=== PATIENT | male | born 1955 | race African-American/Black ===

== ENCOUNTER 2018-10-07 14:06 | Inpatient (IN) | payer MEDICAID ==
[~2018-10-07] VITALS: Ht 177.8 cm; Wt 70.8 kg
[2018-10-07 14:34] VITALS: BP 123/77
[2018-10-07] MEDS ORDERED: LORazepam 2 MG TABLET PO PRN (15:00)
[2018-10-07] MEDS ORDERED: HydrOXYzine PAMOATE 50 MG CAPSULE PO PRN (15:00)
[2018-10-07] MEDS ORDERED: GuaiFENesin/D-METHORPHAN [SUGAR-FREE] 200-20MG/10 ML SYRUP UDCUP PO PRN (15:00)
[2018-10-07] MEDS ORDERED: LOPERAMIDE HCL 2 MG CAPSULE PO PRN (15:00)
[2018-10-07] MEDS ORDERED: CYANOCOBALAMIN 1,000 MCG/ML VIAL IM ONE (15:00)
[2018-10-07] MEDS: THIAMINE HCL 100 MG TABLET PO SCH (17:16)
[2018-10-07] MEDS ORDERED: PNEUMOCOCCAL VACCINE POLYVALENT 0.5 ML VIAL [PPSV23] IM ONE (17:45)
[2018-10-07] MEDS ORDERED: DiphenhydrAMINE HCL 50 MG/ML VIAL IM ONE (21:30)
[2018-10-07] MEDS ORDERED: HALOPERIDOL LACTATE 5 MG/ML VIAL IM ONE (21:30)
[2018-10-07] MEDS ORDERED: LORazepam 2 MG/ML VIAL IM ONE (21:30)
[2018-10-07 21:43] VITALS: BP 129/81
[2018-10-08] MEDS ORDERED: LORazepam 2 MG TABLET PO PRN (07:00)
[2018-10-08] MEDS: LORazepam 2 MG TABLET PO SCH ×4 (09:30→20:16)
[2018-10-08] MEDS: FOLIC ACID 1 MG TABLET PO SCH (09:30)
[2018-10-08] MEDS: MULTIVITAMINS WITH MINERALS, THERAPEUTIC TABLET PO SCH (09:30)
[2018-10-08] MEDS: THIAMINE HCL 100 MG TABLET PO SCH ×2 (09:30→16:19)
[2018-10-08 09:47] VITALS: BP 125/81
[2018-10-08 09:49] VITALS: BP 125/81
[2018-10-08 11:45] VITALS: BP 123/81
[2018-10-08 16:32] VITALS: BP 99/60
[2018-10-08 16:33] VITALS: BP 99/60
[2018-10-08 19:50] VITALS: BP 99/55
[2018-10-08] MEDS ORDERED: PETROLATUM,WHITE 28 GM JELLY TP PRN ×2 (20:00→23:15)
[2018-10-08] MEDS ORDERED: ACETAMINOPHEN 325 MG TABLET PO PRN ×2 (20:00→23:15)
[2018-10-08] MEDS ORDERED: MAGNESIUM HYDROXIDE SUSPENSION 30 ML UDCUP PO PRN ×2 (20:00→23:15)
[2018-10-08] MEDS ORDERED: GuaiFENesin/D-METHORPHAN [SUGAR-FREE] 200-20MG/10 ML SYRUP UDCUP PO PRN ×2 (20:00→23:15)
[2018-10-08] MEDS ORDERED: ALBUTEROL SULFATE HFA 90 MCG/PUFF 8 GM INHALER IH PRN ×2 (20:00→23:15)
[2018-10-08] MEDS ORDERED: MAG HYDROX/AL HYDROX/SIMETH ES 30 ML SUSPENSION UDCUP PO PRN ×2 (20:00→23:15)
[2018-10-08] MEDS ORDERED: NICOTINE 14 MG/24 HOUR PATCH TD PRN ×2 (20:00→23:15)
[2018-10-08] MEDS ORDERED: DOCUSATE SODIUM 100 MG CAPSULE PO PRN ×2 (20:00→23:15)
[2018-10-08] MEDS ORDERED: CloNIDine HCL 0.1 MG TABLET PO PRN ×2 (20:00→23:15)
[2018-10-08] MEDS ORDERED: LOPERAMIDE HCL 2 MG CAPSULE PO PRN ×2 (20:00→23:15)
[2018-10-08] MEDS ORDERED: ONDANSETRON HCL 4 MG TABLET PO PRN (23:15)
[2018-10-08] MEDS ORDERED: IBUPROFEN 400 MG TABLET PO PRN (23:15)
[2018-10-09 01:07] VITALS: BP 75/55
[2018-10-09 01:08] VITALS: BP 75/55
[2018-10-09 07:59] LABS: BASOPHILS % (AUTO) 0.7 % (0.0-2.0); EOSINOPHILS % (AUTO) 3.7 % (1.0-6.0); HEMATOCRIT 36.5 % (41-53); HEMOGLOBIN 12.2 g/dL (13.5-17.5); LYMPHOCYTES # (AUTO) 1.2 K/uL (1.0-4.8); LYMPHOCYTES % (AUTO) 20.7 % (22.0-44.0); MEAN CORPUSCULAR HEMOGLOBIN 30.4 pg (26.0-34.0); MEAN CORPUSCULAR HGB CONC 33.4 G/dL (31.0-37.0); MEAN CORPUSCULAR VOLUME 91 fL (80-100); MONOCYTES # (AUTO) 0.6 K/uL (0.1-1.0); MONOCYTES % (AUTO) 10.5 % (2.0-9.0); NEUTROPHILS # (AUTO) 3.7 K/uL (1.8-7.7); NEUTROPHILS % (AUTO) 64.4 % (40.0-70.0); PLATELET COUNT (AUTO) 186 K/uL (150-450); RED BLOOD CELL COUNT(AUTO) 4.01 MIL/uL (4.50-5.90); RED CELL DISTRIBUTION WIDTH 14.8 % (11.5-14.5)
[2018-10-09 08:49] LABS: HEMOGLOBIN A1C 10.5 % (4.5-6.2)
[2018-10-09 08:52] LABS: ALANINE AMINOTRANSFERASE 34 U/L (12-78); ALBUMIN 3.2 g/dL (3.4-5.0); ALKALINE PHOSPHATASE 93 U/L (46-116); ANION GAP 8 mmol/L (8-16); ASPARTATE AMINOTRANSFERASE 26 U/L (15-37); BILIRUBIN,TOTAL 0.7 mg/dL (0.1-1.0); CALCIUM, TOTAL 9.5 mg/dL (8.8-10.5); CARBON DIOXIDE 27 mmol/L (22-29); CHLORIDE 97 mmol/L (98-107); CHOL/HDL RATIO 3.6 (4.2-7.3); CHOLESTEROL 127 mg/dL (131-200); CREATININE 0.95 mg/dL (0.60-1.30); FREE T4 (FREE THYROXINE) 1.22 ng/dL (0.76-1.46); GLOMERULAR FILTR. RATE CALC > 60 mL/min (>60); GLUCOSE,RANDOM 367 mg/dL (70-110); HDL CHOLESTEROL 35 mg/dL (40-60); LDL CHOL (CALC.) 70 mg/dL (0-130); POTASSIUM 4.1 mmol/L (3.5-5.1); SODIUM SERUM 132 mmol/L (136-145); THYROID STIMULATING HORMONE 1.99 uIU/mL (0.36-3.74); TOTAL PROTEIN, SERUM 7.5 g/dL (6.4-8.2); TRIGLYCERIDES 110 mg/dL (15-150); UREA NITROGEN, BLOOD 16 mg/dL (7-18)
[2018-10-09] MEDS: MULTIVITAMINS WITH MINERALS, THERAPEUTIC TABLET PO SCH (09:00)
[2018-10-09] MEDS: THIAMINE HCL 100 MG TABLET PO SCH ×3 (09:00→17:00)
[2018-10-09] MEDS: LORazepam 2 MG TABLET PO SCH ×5 (09:00→20:29)
[2018-10-09] MEDS: FOLIC ACID 1 MG TABLET PO SCH (09:00)
[2018-10-09] MEDS ORDERED: GLUCAGON,HUMAN RECOMBINANT 1 MG VIAL IM PRN (09:15)
[2018-10-09] MEDS: MetFORMIN HCL 500 MG TABLET PO SCH ×2 (16:34→17:00)
[2018-10-09 17:53] VITALS: BP 117/95
[2018-10-09 17:55] VITALS: BP 117/95
[2018-10-10] MEDS ORDERED: LORazepam 1 MG TABLET PO PRN (07:00)
[2018-10-10 07:01] VITALS: BP 120/61
[2018-10-10] MEDS: MetFORMIN HCL 500 MG TABLET PO SCH ×2 (07:03→17:11)
[2018-10-10] MEDS: IBUPROFEN 400 MG TABLET PO PRN (07:04)
[2018-10-10] MEDS: MULTIVITAMINS WITH MINERALS, THERAPEUTIC TABLET PO SCH ×2 (08:47→09:00)
[2018-10-10] MEDS: THIAMINE HCL 100 MG TABLET PO SCH ×3 (08:47→17:11)
[2018-10-10] MEDS: FOLIC ACID 1 MG TABLET PO SCH ×2 (08:47→09:00)
[2018-10-10] MEDS: LORazepam 1 MG TABLET PO SCH ×6 (08:47→21:33)
[2018-10-10 15:31] VITALS: BP 122/61
[2018-10-11 06:28] VITALS: BP 120/73
[2018-10-11 06:29] VITALS: BP 120/73
[2018-10-11] MEDS ORDERED: LORazepam 1 MG TABLET PO PRN (07:00)
[2018-10-11] MEDS: MetFORMIN HCL 500 MG TABLET PO SCH ×2 (07:02→16:27)
[2018-10-11] MEDS: THIAMINE HCL 100 MG TABLET PO SCH ×2 (08:11→16:27)
[2018-10-11] MEDS: MULTIVITAMINS WITH MINERALS, THERAPEUTIC TABLET PO SCH (08:11)
[2018-10-11] MEDS: FOLIC ACID 1 MG TABLET PO SCH (08:11)
[2018-10-11] MEDS: CITALOPRAM HYDROBROMIDE 20 MG TABLET PO SCH ×2 (08:11→09:00)
[2018-10-11] MEDS ORDERED: SUMAtriptan SUCCINATE 25 MG TABLET PO PRN (15:00)
[2018-10-11 16:30] VITALS: BP 111/63
[2018-10-12] MEDS: MetFORMIN HCL 500 MG TABLET PO SCH ×2 (07:09→16:59)
[2018-10-12] MEDS: FOLIC ACID 1 MG TABLET PO SCH ×2 (09:00→09:23)
[2018-10-12] MEDS: THIAMINE HCL 100 MG TABLET PO SCH ×3 (09:00→16:59)
[2018-10-12] MEDS: MULTIVITAMINS WITH MINERALS, THERAPEUTIC TABLET PO SCH ×2 (09:00→09:23)
[2018-10-12] MEDS: CITALOPRAM HYDROBROMIDE 20 MG TABLET PO SCH (09:24)
[2018-10-12 16:17] VITALS: BP 132/86
[2018-10-12] MEDS: TraMADol HCL 50 MG TABLET PO PRN (16:17)
[2018-10-12] MEDS: ONDANSETRON HCL 4 MG TABLET PO PRN (16:27)
[2018-10-12] MEDS: INSULIN LISPRO 100 UNITS/ML SQ PRN ×2 (16:48→20:48)
[2018-10-12 17:24] LABS: GLUCOMETER DEV NAME(LOC) BV2X.; GLUCOSE,POINT OF CARE 349 MG/DL (70-110)
[2018-10-12 20:59] LABS: GLUCOMETER DEV NAME(LOC) BV2X.; GLUCOSE,POINT OF CARE 230 MG/DL (70-110)
[2018-10-13 01:21] VITALS: BP 117/82
[2018-10-13] MEDS: TraMADol HCL 50 MG TABLET PO PRN ×2 (01:23→17:16)
[2018-10-13] MEDS: INSULIN LISPRO 100 UNITS/ML SQ PRN ×4 (06:48→22:05)
[2018-10-13] MEDS ORDERED: MetFORMIN HCL 500 MG TABLET PO SCH (07:00)
[2018-10-13 07:34] LABS: GLUCOMETER DEV NAME(LOC) BV2X.; GLUCOSE,POINT OF CARE 235 MG/DL (70-110)
[2018-10-13 08:23] LABS: ANION GAP 7 mmol/L (8-16); CARBON DIOXIDE 28 mmol/L (22-29); CHLORIDE 98 mmol/L (98-107); CREATININE 0.88 mg/dL (0.60-1.30); GLOMERULAR FILTR. RATE CALC > 60 mL/min (>60); GLUCOSE,RANDOM 238 mg/dL (70-110); POTASSIUM 4.4 mmol/L (3.5-5.1); SODIUM SERUM 133 mmol/L (136-145); UREA NITROGEN, BLOOD 25 mg/dL (7-18)
[2018-10-13 08:39] VITALS: BP 114/69
[2018-10-13] MEDS: FOLIC ACID 1 MG TABLET PO SCH (09:46)
[2018-10-13] MEDS: MULTIVITAMINS WITH MINERALS, THERAPEUTIC TABLET PO SCH (09:46)
[2018-10-13] MEDS: CITALOPRAM HYDROBROMIDE 20 MG TABLET PO SCH (09:46)
[2018-10-13] MEDS: THIAMINE HCL 100 MG TABLET PO SCH ×2 (09:47→17:15)
[2018-10-13] MEDS: SODIUM CHLORIDE 1 GM TABLET PO SCH ×2 (10:00→17:14)
[2018-10-13 11:09] LABS: GLUCOMETER DEV NAME(LOC) BV2X.; GLUCOSE,POINT OF CARE 194 MG/DL (70-110)
[2018-10-13] MEDS ORDERED: ZOLPIDEM TARTRATE 10 MG TABLET PO PRN (11:15)
[2018-10-13] MEDS: LORazepam 2 MG TABLET PO PRN (11:30)
[2018-10-13 16:24] VITALS: BP 117/81
[2018-10-13 16:54] LABS: GLUCOMETER DEV NAME(LOC) BV2X.; GLUCOSE,POINT OF CARE 211 MG/DL (70-110)
[2018-10-13] MEDS: MetFORMIN HCL 500 MG TABLET PO SCH (17:15)
[2018-10-13 17:16] VITALS: BP 121/73
[2018-10-13] MEDS: ONDANSETRON HCL 4 MG TABLET PO PRN (17:16)
[2018-10-13 20:44] LABS: GLUCOMETER DEV NAME(LOC) BV2X.; GLUCOSE,POINT OF CARE 232 MG/DL (70-110)
[2018-10-13] MEDS: IBUPROFEN 400 MG TABLET PO PRN (23:45)
[2018-10-14 00:40] VITALS: BP 136/84
[2018-10-14] MEDS: TraMADol HCL 50 MG TABLET PO PRN ×2 (05:12→16:35)
[2018-10-14 06:54] LABS: GLUCOMETER DEV NAME(LOC) BV2X.; GLUCOSE,POINT OF CARE 188 MG/DL (70-110)
[2018-10-14] MEDS: MetFORMIN HCL 500 MG TABLET PO SCH ×2 (07:24→16:55)
[2018-10-14] MEDS: INSULIN LISPRO 100 UNITS/ML SQ PRN ×3 (07:24→20:47)
[2018-10-14] MEDS: ONDANSETRON HCL 4 MG TABLET PO PRN (07:27)
[2018-10-14] MEDS: FOLIC ACID 1 MG TABLET PO SCH (08:45)
[2018-10-14] MEDS: MULTIVITAMINS WITH MINERALS, THERAPEUTIC TABLET PO SCH (08:45)
[2018-10-14] MEDS: THIAMINE HCL 100 MG TABLET PO SCH ×2 (08:45→16:55)
[2018-10-14] MEDS: CITALOPRAM HYDROBROMIDE 20 MG TABLET PO SCH (08:45)
[2018-10-14] MEDS: SODIUM CHLORIDE 1 GM TABLET PO SCH ×2 (08:45→16:55)
[2018-10-14 16:35] VITALS: BP 121/79
[2018-10-14 20:49] LABS: GLUCOMETER DEV NAME(LOC) BV2X.; GLUCOSE,POINT OF CARE 157 MG/DL (70-110)
[2018-10-14 20:49] LABS: GLUCOMETER DEV NAME(LOC) BV2X.; GLUCOSE,POINT OF CARE 209 MG/DL (70-110)
[2018-10-15 00:13] VITALS: BP 122/79
[2018-10-15] MEDS: ONDANSETRON HCL 4 MG TABLET PO PRN (01:17)
[2018-10-15 06:19] LABS: GLUCOMETER DEV NAME(LOC) BV2X.; GLUCOSE,POINT OF CARE 154 MG/DL (70-110)
[2018-10-15] MEDS: MetFORMIN HCL 500 MG TABLET PO SCH ×3 (06:53→17:00)
[2018-10-15] MEDS: INSULIN LISPRO 100 UNITS/ML SQ PRN (06:54)
[2018-10-15 07:43] LABS: ANION GAP 10 mmol/L (8-16); CALCIUM, TOTAL 9.4 mg/dL (8.8-10.5); CARBON DIOXIDE 27 mmol/L (22-29); CHLORIDE 98 mmol/L (98-107); CREATININE 0.95 mg/dL (0.60-1.30); GLOMERULAR FILTR. RATE CALC > 60 mL/min (>60); GLUCOSE,RANDOM 156 mg/dL (70-110); POTASSIUM 4.2 mmol/L (3.5-5.1); SODIUM SERUM 135 mmol/L (136-145); UREA NITROGEN, BLOOD 23 mg/dL (7-18)
[2018-10-15] MEDS ORDERED: DiphenhydrAMINE HCL 50 MG/ML VIAL IM ONE (07:45)
[2018-10-15] MEDS ORDERED: LORazepam 2 MG/ML VIAL IM ONE (07:45)
[2018-10-15] MEDS ORDERED: HALOPERIDOL LACTATE 5 MG/ML VIAL IM ONE (07:45)
[2018-10-15] MEDS: CITALOPRAM HYDROBROMIDE 20 MG TABLET PO SCH (09:01)
[2018-10-15] MEDS: SODIUM CHLORIDE 1 GM TABLET PO SCH (09:01)
[2018-10-15] MEDS: FOLIC ACID 1 MG TABLET PO SCH (09:01)
[2018-10-15] MEDS: MULTIVITAMINS WITH MINERALS, THERAPEUTIC TABLET PO SCH (09:01)
[2018-10-15] MEDS: THIAMINE HCL 100 MG TABLET PO SCH ×3 (09:01→17:00)
[2018-10-15 11:55] LABS: GLUCOMETER DEV NAME(LOC) BV2X.; GLUCOSE,POINT OF CARE 155 MG/DL (70-110)
[2018-10-16] MEDS: MetFORMIN HCL 500 MG TABLET PO SCH ×2 (07:00→16:54)
[2018-10-16] MEDS: MULTIVITAMINS WITH MINERALS, THERAPEUTIC TABLET PO SCH (08:31)
[2018-10-16] MEDS: CITALOPRAM HYDROBROMIDE 20 MG TABLET PO SCH (08:31)
[2018-10-16] MEDS: THIAMINE HCL 100 MG TABLET PO SCH ×2 (08:31→16:54)
[2018-10-16] MEDS: FOLIC ACID 1 MG TABLET PO SCH (08:31)
[2018-10-17 01:19] VITALS: BP 125/81
[2018-10-17] MEDS: MetFORMIN HCL 500 MG TABLET PO SCH ×3 (06:57→17:00)
[2018-10-17] MEDS: CITALOPRAM HYDROBROMIDE 20 MG TABLET PO SCH (09:02)
[2018-10-17] MEDS: FOLIC ACID 1 MG TABLET PO SCH (09:02)
[2018-10-17] MEDS: THIAMINE HCL 100 MG TABLET PO SCH (09:02)
[2018-10-17] MEDS: MULTIVITAMINS WITH MINERALS, THERAPEUTIC TABLET PO SCH (09:02)
[2018-10-17] MEDS: LORazepam 2 MG TABLET PO PRN (09:02)
[2018-10-18 03:38] VITALS: BP 138/88
[2018-10-18] MEDS: CITALOPRAM HYDROBROMIDE 20 MG TABLET PO SCH (09:00)
[2018-10-18 09:50] VITALS: BP 132/85
[2018-10-18] MEDS: MULTIVITAMINS WITH MINERALS, THERAPEUTIC TABLET PO SCH (09:50)
[2018-10-18] MEDS: TraMADol HCL 50 MG TABLET PO PRN (09:50)
== END 2018-10-18 10:50 | disposition left against medical advice (07) | DRG 750 ==
LOC: B2S 15:20
PROVIDERS: ADMIT Psychiatry & Neurology Child & Adolescent Psychiatry; ATTEND Psychiatry & Neurology Child & Adolescent Psychiatry
DX: F25.9 Schizoaffective disorder, unspecified (principal); E11.9 Type 2 diabetes mellitus without complications; R45.851 Suicidal ideations; F10.20 Alcohol dependence, uncomplicated; Y90.9 Presence of alcohol in blood, level not specified; Z53.21 Procedure and treatment not carried out due to patient leaving prior to being seen by health care provider; F41.9 Anxiety disorder, unspecified; F10.239 Alcohol dependence with withdrawal, unspecified; E55.9 Vitamin D deficiency, unspecified; E66.9 Obesity, unspecified; G47.00 Insomnia, unspecified; K59.00 Constipation, unspecified; Z88.0 Allergy status to penicillin; Z88.1 Allergy status to other antibiotic agents; Z68.22 Body mass index [BMI] 22.0-22.9, adult
CPT/HCPCS: 83036; 84439; 84443; J1200; J1630; J2060; J3420; Q0162

== ENCOUNTER 2018-10-22 13:06 | Emergency (ER) | payer MEDICAID ==
[~2018-10-22] VITALS: Ht 185.4 cm; Wt 69.5 kg
[2018-10-22] MEDS ORDERED: METF-960 PO (13:30)
[2018-10-22] MEDS ORDERED: LIB5 PO (13:30)
[2018-10-22] MEDS ORDERED: SODIUM CHLORIDE 0.9% 2,000 ML IV ONE (13:46)
[2018-10-22] MEDS ORDERED: INSULIN REGULAR, HUMAN 100 UNITS/ML IVP ONE (14:00)
[2018-10-22 14:27] LABS: BASOPHILS % (AUTO) 0.2 % (0.0-2.0); EOSINOPHILS % (AUTO) 3.6 % (1.0-6.0); HEMATOCRIT 32.4 % (41-53); HEMOGLOBIN 10.8 g/dL (13.5-17.5); LYMPHOCYTES # (AUTO) 1.3 K/uL (1.0-4.8); LYMPHOCYTES % (AUTO) 21.2 % (22.0-44.0); MEAN CORPUSCULAR HGB CONC 33.3 G/dL (31.0-37.0); MEAN CORPUSCULAR VOLUME 93 fL (80-100); MONOCYTES # (AUTO) 0.6 K/uL (0.1-1.0); MONOCYTES % (AUTO) 10.6 % (2.0-9.0); NEUTROPHILS # (AUTO) 3.9 K/uL (1.8-7.7); NEUTROPHILS % (AUTO) 64.4 % (40.0-70.0); PLATELET COUNT (AUTO) 145 K/uL (150-450); RED BLOOD CELL COUNT(AUTO) 3.48 MIL/uL (4.50-5.90)
[2018-10-22 14:52] LABS: B-TYPE NATRIURETIC PEPTIDE 20 pg/mL (0-100); HEMOGLOBIN A1C 10.6 % (4.5-6.2)
[2018-10-22 14:54] LABS: ALANINE AMINOTRANSFERASE 38 U/L (12-78); ALBUMIN 3.2 g/dL (3.4-5.0); ALKALINE PHOSPHATASE 150 U/L (46-116); ANION GAP 4 mmol/L (8-16); ASPARTATE AMINOTRANSFERASE 23 U/L (15-37); BILIRUBIN,TOTAL 0.4 mg/dL (0.1-1.0); CALCIUM, TOTAL 9.3 mg/dL (8.8-10.5); CARBON DIOXIDE 31 mmol/L (22-29); CHLORIDE 96 mmol/L (98-107); CREATININE 1.07 mg/dL (0.60-1.30); GLOMERULAR FILTR. RATE CALC > 60 mL/min (>60); POTASSIUM 4.2 mmol/L (3.5-5.1); SODIUM SERUM 131 mmol/L (136-145); TOTAL PROTEIN, SERUM 7.6 g/dL (6.4-8.2); UREA NITROGEN, BLOOD 17 mg/dL (7-18)
[2018-10-22 15:02] VITALS: BP 148/76
[2018-10-22 15:04] LABS: GLUCOSE,POINT OF CARE 377 MG/DL (70-110)
[2018-10-22 15:27] LABS: LIPASE 192 U/L (73-393)
[2018-10-22 15:32] LABS: GLUCOSE,RANDOM 528 mg/dL (70-110)
== END 2018-10-22 16:11 | disposition left against medical advice (07) ==
LOC: EMS 13:08
DX: F10.20 Alcohol dependence, uncomplicated (principal); E86.0 Dehydration; F17.210 Nicotine dependence, cigarettes, uncomplicated; F12.90 Cannabis use, unspecified, uncomplicated; Z79.84 Long term (current) use of oral hypoglycemic drugs; Z88.1 Allergy status to other antibiotic agents; Z88.0 Allergy status to penicillin; Z91.018 Allergy to other foods
CPT/HCPCS: 80053; 82962; 83036; 83690; 83880; 84484; 85025; 96374; 99283; J1815; J7030

== ENCOUNTER 2018-10-22 17:45 | Emergency (ER) | payer MEDICAID ==
[~2018-10-22] VITALS: Ht 170.2 cm; Wt 72.7 kg
[~2018-10-22 17:45] MED LIST: LIB5 PO; METF-960 PO
[2018-10-22 18:15] LABS: GLUCOSE,POINT OF CARE 149 MG/DL (70-110)
[2018-10-22 20:40] VITALS: BP 122/74
== END 2018-10-22 20:42 | disposition home or self-care (01) ==
LOC: EMS 17:47
DX: F10.21 Alcohol dependence, in remission (principal); E11.9 Type 2 diabetes mellitus without complications; F12.90 Cannabis use, unspecified, uncomplicated; F17.210 Nicotine dependence, cigarettes, uncomplicated; Z88.0 Allergy status to penicillin; Z88.1 Allergy status to other antibiotic agents; Z91.018 Allergy to other foods; Y90.9 Presence of alcohol in blood, level not specified

== ENCOUNTER 2018-10-24 22:07 | Emergency (ER) | payer MEDICAID ==
[~2018-10-24] VITALS: Ht 185.4 cm; Wt 75.0 kg
[2018-10-25 00:49] LABS: BASOPHILS % (AUTO) 0.4 % (0.0-2.0); EOSINOPHILS % (AUTO) 3.7 % (1.0-6.0); HEMATOCRIT 37.3 % (41-53); HEMOGLOBIN 12.4 g/dL (13.5-17.5); LYMPHOCYTES # (AUTO) 1.5 K/uL (1.0-4.8); LYMPHOCYTES % (AUTO) 25.7 % (22.0-44.0); MEAN CORPUSCULAR HEMOGLOBIN 30.7 pg (26.0-34.0); MEAN CORPUSCULAR HGB CONC 33.3 G/dL (31.0-37.0); MEAN CORPUSCULAR VOLUME 92 fL (80-100); MONOCYTES # (AUTO) 0.6 K/uL (0.1-1.0); MONOCYTES % (AUTO) 10.8 % (2.0-9.0); NEUTROPHILS # (AUTO) 3.5 K/uL (1.8-7.7); NEUTROPHILS % (AUTO) 59.4 % (40.0-70.0); PLATELET COUNT (AUTO) 150 K/uL (150-450); RED BLOOD CELL COUNT(AUTO) 4.04 MIL/uL (4.50-5.90); RED CELL DISTRIBUTION WIDTH 14.3 % (11.5-14.5)
[2018-10-25 01:04] LABS: ALANINE AMINOTRANSFERASE 34 U/L (12-78); ALBUMIN 3.5 g/dL (3.4-5.0); ALKALINE PHOSPHATASE 130 U/L (46-116); ANION GAP 9 mmol/L (8-16); ASPARTATE AMINOTRANSFERASE 20 U/L (15-37); BILIRUBIN,TOTAL 0.5 mg/dL (0.1-1.0); CALCIUM, TOTAL 9.5 mg/dL (8.8-10.5); CARBON DIOXIDE 30 mmol/L (22-29); CHLORIDE 96 mmol/L (98-107); CREATININE 1.02 mg/dL (0.60-1.30); GLOMERULAR FILTR. RATE CALC > 60 mL/min (>60); POTASSIUM 3.9 mmol/L (3.5-5.1); SODIUM SERUM 135 mmol/L (136-145); TOTAL PROTEIN, SERUM 7.9 g/dL (6.4-8.2); UREA NITROGEN, BLOOD 26 mg/dL (7-18)
[2018-10-25 01:06] LABS: GLUCOSE,RANDOM 441 mg/dL (70-110)
[2018-10-25 01:19] LABS: GLUCOSE,POINT OF CARE 420 MG/DL (70-110)
[2018-10-25] MEDS ORDERED: INSULIN REGULAR, HUMAN 100 UNITS/ML IVP ONE (01:45)
[2018-10-25] MEDS ORDERED: SODIUM CHLORIDE 0.9% 1,000 ML IV ONE (01:45)
[2018-10-25] MEDS ORDERED: ONDANSETRON HCL 4 MG/2 ML VIAL IVP ONE (01:45)
[2018-10-25 03:15] LABS: GLUCOSE,POINT OF CARE 226 MG/DL (70-110)
[2018-10-25 05:30] VITALS: BP 124/72
== END 2018-10-25 05:57 | disposition home or self-care (01) ==
LOC: EMS 22:09
DX: K52.9 Noninfective gastroenteritis and colitis, unspecified (principal); E10.65 Type 1 diabetes mellitus with hyperglycemia; F12.90 Cannabis use, unspecified, uncomplicated; F17.210 Nicotine dependence, cigarettes, uncomplicated; Z88.0 Allergy status to penicillin; Z88.1 Allergy status to other antibiotic agents; Z91.018 Allergy to other foods; Z79.84 Long term (current) use of oral hypoglycemic drugs
CPT/HCPCS: 36415; 80053; 82009; 82962; 85025; 96361; 96374; 96375; 99283; J1815; J2405; J7030

== ENCOUNTER 2019-06-06 15:58 | Inpatient (IN) | payer MEDICARE, MEDICAID ==
[~2019-06-06] VITALS: Ht 185.4 cm; Wt 67.7 kg
[2019-06-06 16:18] VITALS: BP 139/83
[2019-06-06] MEDS ORDERED: ZOLPIDEM TARTRATE 10 MG TABLET PO PRN (16:30)
[2019-06-06] MEDS ORDERED: HALOPERIDOL 5 MG TABLET PO PRN (16:30)
[2019-06-06] MEDS ORDERED: PNEUMOCOCCAL VACCINE POLYVALENT 0.5 ML VIAL [PPSV23] IM ONE (17:15)
[2019-06-06 17:30] VITALS: BP 154/87
[2019-06-06] MEDS ORDERED: INFLUENZA VIRUS VACCINE QVS 2019-20 (3YR+)/PF 60 MCG/0.5 ML SYRINGE IM ONE (17:30)
[2019-06-06] MEDS: LORazepam 1 MG TABLET PO PRN (17:41)
[2019-06-06] MEDS ORDERED: GLUCAGON,HUMAN RECOMBINANT 1 MG VIAL IM PRN (18:45)
[2019-06-06] MEDS ORDERED: INSULIN LISPRO 100 UNITS/ML SQ PRN (18:45)
[2019-06-07] MEDS: MetFORMIN HCL 500 MG TABLET PO SCH ×2 (07:00→17:00)
[2019-06-07] MEDS ORDERED: MAG HYDROX/AL HYDROX/SIMETH ES 30 ML SUSPENSION UDCUP PO PRN (07:45)
[2019-06-07] MEDS ORDERED: LOPERAMIDE HCL 2 MG CAPSULE PO PRN (07:45)
[2019-06-07] MEDS ORDERED: PETROLATUM,WHITE 28 GM JELLY TP PRN (07:45)
[2019-06-07] MEDS ORDERED: DOCUSATE SODIUM 100 MG CAPSULE PO PRN (07:45)
[2019-06-07] MEDS ORDERED: GuaiFENesin/D-METHORPHAN [SUGAR-FREE] 200-20MG/10 ML SYRUP UDCUP PO PRN (07:45)
[2019-06-07] MEDS ORDERED: ACETAMINOPHEN 325 MG TABLET PO PRN (07:45)
[2019-06-07] MEDS ORDERED: ALBUTEROL SULFATE HFA 90 MCG/PUFF 8 GM INHALER IH PRN (07:45)
[2019-06-07] MEDS ORDERED: IBUPROFEN 400 MG TABLET PO PRN (07:45)
[2019-06-07] MEDS ORDERED: CloNIDine HCL 0.1 MG TABLET PO PRN (07:45)
[2019-06-07] MEDS ORDERED: NICOTINE 14 MG/24 HOUR PATCH TD PRN (07:45)
[2019-06-07] MEDS ORDERED: ONDANSETRON HCL 4 MG TABLET PO PRN (07:45)
[2019-06-07] MEDS ORDERED: MAGNESIUM HYDROXIDE SUSPENSION 30 ML UDCUP PO PRN (07:45)
[2019-06-07] MEDS: LORazepam 1 MG TABLET PO PRN (08:58)
[2019-06-07] MEDS: CITALOPRAM HYDROBROMIDE 20 MG TABLET PO SCH (11:00)
[2019-06-07] MEDS: OLANZapine 5 MG TABLET PO SCH ×2 (11:00→17:00)
[2019-06-07 16:00] VITALS: BP 126/71
[2019-06-08] MEDS: LORazepam 1 MG TABLET PO PRN (03:08)
[2019-06-08] MEDS: MetFORMIN HCL 500 MG TABLET PO SCH ×2 (06:34→16:16)
[2019-06-08 08:20] VITALS: BP 130/74
[2019-06-08] MEDS: OLANZapine 5 MG TABLET PO SCH ×2 (09:45→16:16)
[2019-06-08] MEDS: CITALOPRAM HYDROBROMIDE 20 MG TABLET PO SCH (09:45)
[2019-06-08 16:03] VITALS: BP 134/90
[2019-06-08] MEDS: BACITRACIN 28.4 GM OINTMENT TP SCH (17:00)
[2019-06-09] MEDS: MetFORMIN HCL 500 MG TABLET PO SCH (07:00)
[2019-06-09] MEDS: BACITRACIN 28.4 GM OINTMENT TP SCH (08:19)
[2019-06-09] MEDS: OLANZapine 5 MG TABLET PO SCH (08:25)
[2019-06-09] MEDS: CITALOPRAM HYDROBROMIDE 20 MG TABLET PO SCH (08:25)
[2019-06-09] MEDS ORDERED: METF-960 PO (10:26)
[2019-06-09] MEDS ORDERED: OLAN5TAB2 PO (10:26)
[2019-06-09] MEDS ORDERED: CITA-106 PO (10:26)
== END 2019-06-09 12:22 | disposition home or self-care (01) | DRG 750 ==
LOC: B2S 16:29
PROVIDERS: ADMIT Psychiatry & Neurology Psychiatry; ATTEND Psychiatry & Neurology Psychiatry
DX: F25.1 Schizoaffective disorder, depressive type (principal); E46 Unspecified protein-calorie malnutrition; E11.9 Type 2 diabetes mellitus without complications; I10 Essential (primary) hypertension; F10.10 Alcohol abuse, uncomplicated; Z88.1 Allergy status to other antibiotic agents; Z88.0 Allergy status to penicillin; Z88.8 Allergy status to other drugs, medicaments and biological substances; Z91.018 Allergy to other foods; Z68.1 Body mass index [BMI] 19.9 or less, adult

== ENCOUNTER 2019-07-24 21:38 | Inpatient (IN) | payer MEDICARE, MEDICAID ==
[~2019-07-24] VITALS: Ht 185.4 cm; Wt 75.0 kg
[~2019-07-24 21:38] MED LIST changes: +CITA-106 PO; -LIB5 PO; +OLAN5TAB2 PO
[2019-07-24] MEDS ORDERED: ZOLPIDEM TARTRATE 10 MG TABLET PO PRN (22:15)
[2019-07-24] MEDS ORDERED: HALOPERIDOL 5 MG TABLET PO PRN (22:15)
[2019-07-24] MEDS ORDERED: LORazepam 2 MG TABLET PO PRN (22:15)
[2019-07-24 22:28] VITALS: BP 141/90
[2019-07-24] MEDS ORDERED: INFLUENZA VIRUS VACCINE QVS 2019-20 (3YR+)/PF 60 MCG/0.5 ML SYRINGE IM ONE (23:15)
[2019-07-24] MEDS ORDERED: PNEUMOCOCCAL VACCINE POLYVALENT 0.5 ML VIAL [PPSV23] IM ONE (23:15)
[2019-07-25 01:00] VITALS: BP 149/94
[2019-07-25 07:54] LABS: BASOPHILS % (AUTO) 0.8 % (0.0-2.0); EOSINOPHILS % (AUTO) 3.3 % (1.0-6.0); HEMATOCRIT 31.6 % (41-53); LYMPHOCYTES # (AUTO) 1.3 K/uL (1.0-4.8); LYMPHOCYTES % (AUTO) 21.4 % (22.0-44.0); MEAN CORPUSCULAR HEMOGLOBIN 32.1 pg (26.0-34.0); MEAN CORPUSCULAR HGB CONC 34.9 G/dL (31.0-37.0); MEAN CORPUSCULAR VOLUME 92 fL (80-100); MONOCYTES # (AUTO) 0.8 K/uL (0.1-1.0); NEUTROPHILS # (AUTO) 3.6 K/uL (1.8-7.7); NEUTROPHILS % (AUTO) 61.5 % (40.0-70.0); PLATELET COUNT (AUTO) 171 K/uL (150-450); RED BLOOD CELL COUNT(AUTO) 3.43 MIL/uL (4.50-5.90); RED CELL DISTRIBUTION WIDTH 14.5 % (11.5-14.5)
[2019-07-25 08:01] LABS: HEMOGLOBIN A1C 8.8 % (4.5-6.2)
[2019-07-25 08:16] LABS: ALANINE AMINOTRANSFERASE 58 U/L (12-78); ALBUMIN 2.4 g/dL (3.4-5.0); ALKALINE PHOSPHATASE 153 U/L (46-116); ANION GAP 6 mmol/L (8-16); ASPARTATE AMINOTRANSFERASE 50 U/L (15-37); BILIRUBIN,TOTAL 0.3 mg/dL (0.1-1.0); CALCIUM, TOTAL 8.3 mg/dL (8.8-10.5); CARBON DIOXIDE 30 mmol/L (22-29); CHLORIDE 103 mmol/L (98-107); CHOL/HDL RATIO 3.3 (4.2-7.3); CHOLESTEROL 122 mg/dL (131-200); CREATININE 0.82 mg/dL (0.60-1.30); FREE T4 (FREE THYROXINE) 1.11 ng/dL (0.76-1.46); GLOMERULAR FILTR. RATE CALC > 60 mL/min (>60); GLUCOSE,RANDOM 221 mg/dL (70-110); HDL CHOLESTEROL 37 mg/dL (40-60); LDL CHOL (CALC.) 61 mg/dL (0-130); POTASSIUM 3.7 mmol/L (3.5-5.1); SODIUM SERUM 139 mmol/L (136-145); THYROID STIMULATING HORMONE 1.17 uIU/mL (0.36-3.74); TOTAL PROTEIN, SERUM 6.3 g/dL (6.4-8.2); TRIGLYCERIDES 120 mg/dL (15-150); UREA NITROGEN, BLOOD 13 mg/dL (7-18)
[2019-07-25] MEDS: OLANZapine 5 MG TABLET PO SCH ×2 (09:45→17:45)
[2019-07-25] MEDS: CITALOPRAM HYDROBROMIDE 20 MG TABLET PO SCH (09:45)
[2019-07-25] MEDS ORDERED: IBUPROFEN 400 MG TABLET PO PRN (10:30)
[2019-07-25] MEDS ORDERED: GLUCAGON,HUMAN RECOMBINANT 1 MG VIAL IM PRN (10:30)
[2019-07-25] MEDS ORDERED: MAG HYDROX/AL HYDROX/SIMETH ES 30 ML SUSPENSION UDCUP PO PRN (10:30)
[2019-07-25] MEDS ORDERED: INSULIN LISPRO 100 UNITS/ML SQ PRN (10:30)
[2019-07-25] MEDS ORDERED: LOPERAMIDE HCL 2 MG CAPSULE PO PRN (10:30)
[2019-07-25] MEDS ORDERED: NICOTINE 14 MG/24 HOUR PATCH TD PRN (10:30)
[2019-07-25] MEDS ORDERED: PETROLATUM,WHITE 28 GM JELLY TP PRN (10:30)
[2019-07-25] MEDS ORDERED: ONDANSETRON HCL 4 MG TABLET PO PRN (10:30)
[2019-07-25] MEDS ORDERED: ALBUTEROL SULFATE HFA 90 MCG/PUFF 8 GM INHALER IH PRN (10:30)
[2019-07-25] MEDS ORDERED: MAGNESIUM HYDROXIDE SUSPENSION 30 ML UDCUP PO PRN (10:30)
[2019-07-25] MEDS ORDERED: CloNIDine HCL 0.1 MG TABLET PO PRN (10:30)
[2019-07-25] MEDS ORDERED: DOCUSATE SODIUM 100 MG CAPSULE PO PRN (10:30)
[2019-07-25] MEDS ORDERED: GuaiFENesin/D-METHORPHAN [SUGAR-FREE] 200-20MG/10 ML SYRUP UDCUP PO PRN (10:30)
[2019-07-25] MEDS ORDERED: ACETAMINOPHEN 325 MG TABLET PO PRN (10:30)
[2019-07-25 17:05] LABS: GLUCOMETER DEV NAME(LOC) BV3S.; GLUCOSE,POINT OF CARE 204 MG/DL (70-110)
[2019-07-25] MEDS: MetFORMIN HCL 500 MG TABLET PO SCH (17:45)
[2019-07-26] MEDS: MetFORMIN HCL 500 MG TABLET PO SCH ×2 (06:38→16:53)
[2019-07-26 06:45] VITALS: BP 145/93
[2019-07-26 06:48] LABS: GLUCOMETER DEV NAME(LOC) BV3S.; GLUCOSE,POINT OF CARE 166 MG/DL (70-110)
[2019-07-26 08:13] VITALS: BP 137/89
[2019-07-26] MEDS: CITALOPRAM HYDROBROMIDE 20 MG TABLET PO SCH (09:01)
[2019-07-26] MEDS: OLANZapine 5 MG TABLET PO SCH ×2 (09:01→16:53)
[2019-07-27 05:58] LABS: GLUCOMETER DEV NAME(LOC) BV3S.; GLUCOSE,POINT OF CARE 253 MG/DL (70-110)
[2019-07-27 06:00] VITALS: BP 138/79
[2019-07-27] MEDS: MetFORMIN HCL 500 MG TABLET PO SCH ×2 (06:38→16:52)
[2019-07-27 08:42] VITALS: BP 134/62
[2019-07-27] MEDS: CITALOPRAM HYDROBROMIDE 20 MG TABLET PO SCH (09:17)
[2019-07-27] MEDS: OLANZapine 5 MG TABLET PO SCH ×2 (09:18→16:52)
[2019-07-27 16:56] VITALS: BP 133/86
[2019-07-28 06:26] VITALS: BP 136/87
[2019-07-28] MEDS: MetFORMIN HCL 500 MG TABLET PO SCH (06:59)
[2019-07-28] MEDS: OLANZapine 5 MG TABLET PO SCH (08:32)
[2019-07-28] MEDS: CITALOPRAM HYDROBROMIDE 20 MG TABLET PO SCH (08:32)
[2019-07-28 08:50] VITALS: BP 127/69
[2019-07-28] MEDS ORDERED: CITA-107 PO (11:36)
[2019-07-28] MEDS ORDERED: METF-444 PO (11:36)
[2019-07-28] MEDS ORDERED: OLAN5TAB27 PO (11:36)
== END 2019-07-28 13:37 | disposition home or self-care (01) | DRG 750 ==
LOC: B3A 22:32
PROVIDERS: ADMIT Psychiatry & Neurology Psychiatry; ATTEND Psychiatry & Neurology Psychiatry
DX: F25.9 Schizoaffective disorder, unspecified (principal); R45.851 Suicidal ideations; E11.9 Type 2 diabetes mellitus without complications; D64.9 Anemia, unspecified; F19.90 Other psychoactive substance use, unspecified, uncomplicated; F10.10 Alcohol abuse, uncomplicated; I10 Essential (primary) hypertension; R74.0 Nonspecific elevation of levels of transaminase and lactic acid dehydrogenase [LDH]; F32.9 Major depressive disorder, single episode, unspecified; R45.4 Irritability and anger; Y90.0 Blood alcohol level of less than 20 mg/100 ml; Z72.89 Other problems related to lifestyle; Z88.0 Allergy status to penicillin; Z88.8 Allergy status to other drugs, medicaments and biological substances; Z28.21 Immunization not carried out because of patient refusal; Z91.14 Patient's other noncompliance with medication regimen
CPT/HCPCS: 83036; 84439; 84443; 87081

== ENCOUNTER 2021-04-15 23:31 | Inpatient (IN) | payer MEDICARE, MEDICAID ==
[~2021-04-15] VITALS: Ht 182.9 cm; Wt 62.6 kg
[~2021-04-15 23:31] MED LIST changes: -CITA-106 PO; +CITA-144 PO; -OLAN5TAB2 PO; +OLAN5TAB52 PO
[2021-04-16 01:08] LABS: BASOPHILS % (AUTO) 0.6 % (0.0-2.0); EOSINOPHILS % (AUTO) 2.6 % (1.0-6.0); HEMATOCRIT 36.1 % (41-53); HEMOGLOBIN 11.8 g/dL (13.5-17.5); LYMPHOCYTES # (AUTO) 1.7 K/uL (1.0-4.8); MEAN CORPUSCULAR HEMOGLOBIN 29.6 pg (26.0-34.0); MEAN CORPUSCULAR HGB CONC 32.7 G/dL (31.0-37.0); MEAN CORPUSCULAR VOLUME 91 fL (80-100); MONOCYTES # (AUTO) 1.2 K/uL (0.1-1.0); MONOCYTES % (AUTO) 14.3 % (2.0-9.0); NEUTROPHILS % (AUTO) 61.5 % (40.0-70.0); PLATELET COUNT (AUTO) 191 K/uL (150-450); RED BLOOD CELL COUNT(AUTO) 3.98 MIL/uL (4.50-5.90); RED CELL DISTRIBUTION WIDTH 16.9 % (11.5-14.5)
[2021-04-16 01:53] LABS: ANION GAP 9 mmol/L (8-16); CALCIUM, TOTAL 9.1 mg/dL (8.8-10.5); CARBON DIOXIDE 28 mmol/L (22-29); CHLORIDE 101 mmol/L (98-107); GLOMERULAR FILTR. RATE CALC > 60 mL/min (>60); GLUCOSE,RANDOM 168 mg/dL (70-110); POTASSIUM 4.4 mmol/L (3.5-5.1); SODIUM SERUM 138 mmol/L (136-145); UREA NITROGEN, BLOOD 25 mg/dL (7-18)
[2021-04-16 02:04] LABS: AMPHET/METH SCREEN,URINE POSITIVE (NEGATIVE); BARBITURATE SCREEN, URINE NEGATIVE (NEGATIVE); BENZODIAZEPINES SCREEN,URINE NEGATIVE (NEGATIVE); CANNABINOID SCREEN,URINE POSITIVE (NEGATIVE); COCAINE SCREEN,URINE NEGATIVE (NEGATIVE); METHADONE SCREEN, URINE NEGATIVE (NEGATIVE); OPIATE SCREEN,URINE NEGATIVE (NEGATIVE)
[2021-04-16 02:05] LABS: ALANINE AMINOTRANSFERASE 19 U/L (12-78); ALBUMIN 3.5 g/dL (3.4-5.0); ALKALINE PHOSPHATASE 108 U/L (46-116); ASPARTATE AMINOTRANSFERASE 23 U/L (15-37); BILIRUBIN,TOTAL 0.7 mg/dL (0.1-1.0); TOTAL PROTEIN, SERUM 8.1 g/dL (6.4-8.2)
[2021-04-16 02:06] LABS: PHENCYCLIDINE SCREEN,URINE NEGATIVE (NEGATIVE)
[2021-04-16] MEDS ORDERED: HALOPERIDOL 5 MG TABLET PO PRN (04:00)
[2021-04-16 05:46] LABS: COVID AG,FIA SOURCE NASOPHARYNGEAL
[2021-04-16 08:20] LABS: APPEARANCE,URINE CLEAR (CLEAR); BILIRUBIN,URINE NEGATIVE (NEGATIVE); GLUCOSE, URINE (UA) NEGATIVE (NEGATIVE); KETONES,URINE NEGATIVE (NEGATIVE); LEUKOCYTE ESTERASE ,URINE NEGATIVE (NEGATIVE); NITRATE,URINE NEGATIVE (NEGATIVE); OCCULT BLOOD,URINE TRACE (NEGATIVE); PROTEIN,URINE SEE CONFIRM (NEGATIVE)
[2021-04-16 08:36] LABS: BACTERIA,URINE None Seen /HPF (None Seen); RBC,URINE 0-2 /HPF (0-2); SULFOSALICYLIC ACID,URINE 3+ (Negative); WBC,URINE None Seen /HPF (0-5)
[2021-04-16 08:37] LABS: GLUCOSE,POINT OF CARE 154 MG/DL (70-110)
[2021-04-16] MEDS ORDERED: MAG HYDROX/AL HYDROX/SIMETH ES 30 ML SUSPENSION UDCUP PO ONE (09:45)
[2021-04-16] MEDS ORDERED: PETROLATUM,WHITE 28 GM JELLY TP PRN (10:00)
[2021-04-16] MEDS ORDERED: ACETAMINOPHEN 325 MG TABLET PO PRN (10:00)
[2021-04-16] MEDS ORDERED: DOCUSATE SODIUM 100 MG CAPSULE PO PRN (10:00)
[2021-04-16] MEDS ORDERED: NICOTINE 14 MG/24 HOUR PATCH TD PRN (10:00)
[2021-04-16] MEDS ORDERED: LOPERAMIDE HCL 2 MG CAPSULE PO PRN (10:00)
[2021-04-16] MEDS ORDERED: GuaiFENesin/D-METHORPHAN [SUGAR-FREE] 200-20MG/10 ML SYRUP UDCUP PO PRN (10:00)
[2021-04-16] MEDS ORDERED: ALBUTEROL SULFATE HFA 90 MCG/PUFF 8 GM INHALER IH PRN (10:00)
[2021-04-16] MEDS ORDERED: CloNIDine HCL 0.1 MG TABLET PO PRN (10:00)
[2021-04-16] MEDS ORDERED: MAGNESIUM HYDROXIDE SUSPENSION 30 ML UDCUP PO PRN (10:00)
[2021-04-16 12:32] VITALS: BP 145/87
[2021-04-16] MEDS: MAG HYDROX/AL HYDROX/SIMETH ES 30 ML SUSPENSION UDCUP PO PRN (13:40)
[2021-04-16] MEDS ORDERED: INFLUENZA VIRUS VACCINE QVS 2021-22 (6MO+)/PF 60 MCG/0.5 ML SYRINGE IM. ONE (14:00)
[2021-04-16] MEDS: MetFORMIN HCL 500 MG TABLET PO SCH (16:41)
[2021-04-16] MEDS: OLANZapine 5 MG TABLET PO SCH (16:41)
[2021-04-16] MEDS: LORazepam 2 MG TABLET PO PRN (18:01)
[2021-04-16] MEDS ORDERED: DEXTROSE 50%-WATER 25 GM/50 ML SYRINGE IVP PRN (18:30)
[2021-04-17 05:34] LABS: GLUCOMETER DEV NAME(LOC) 3EX.; GLUCOSE,POINT OF CARE 150 MG/DL (70-110)
[2021-04-17 06:42] LABS: CHOL/HDL RATIO 3.5 (4.2-7.3)
[2021-04-17] MEDS: MetFORMIN HCL 500 MG TABLET PO SCH ×2 (06:46→17:03)
[2021-04-17] MEDS: INSULIN LISPRO 100 UNITS/ML SQ PRN ×2 (06:50→18:03)
[2021-04-17] MEDS: OLANZapine 5 MG TABLET PO SCH ×2 (09:53→17:03)
[2021-04-17] MEDS: CITALOPRAM HYDROBROMIDE 20 MG TABLET PO SCH (09:53)
[2021-04-17 16:40] LABS: GLUCOMETER DEV NAME(LOC) 3EX.; GLUCOSE,POINT OF CARE 184 MG/DL (70-110)
[2021-04-18 06:20] LABS: GLUCOMETER DEV NAME(LOC) 3EX.; GLUCOSE,POINT OF CARE 118 MG/DL (70-110)
[2021-04-18] MEDS: MetFORMIN HCL 500 MG TABLET PO SCH ×2 (06:33→17:30)
[2021-04-18 08:45] VITALS: BP 151/81
[2021-04-18] MEDS: CITALOPRAM HYDROBROMIDE 20 MG TABLET PO SCH ×2 (09:00→10:08)
[2021-04-18] MEDS: OLANZapine 5 MG TABLET PO SCH ×3 (09:00→20:36)
[2021-04-18 16:30] VITALS: BP 132/66
[2021-04-18] MEDS: MAG HYDROX/AL HYDROX/SIMETH ES 30 ML SUSPENSION UDCUP PO PRN (19:22)
[2021-04-19 05:36] LABS: GLUCOMETER DEV NAME(LOC) 3EX.; GLUCOSE,POINT OF CARE 141 MG/DL (70-110)
[2021-04-19] MEDS: MetFORMIN HCL 500 MG TABLET PO SCH ×2 (07:00→16:39)
[2021-04-19] MEDS: INSULIN LISPRO 100 UNITS/ML SQ PRN ×2 (07:09→17:23)
[2021-04-19] MEDS: CITALOPRAM HYDROBROMIDE 20 MG TABLET PO SCH (09:09)
[2021-04-19 11:03] VITALS: BP 136/86
[2021-04-19 16:31] LABS: GLUCOMETER DEV NAME(LOC) 3EX.; GLUCOSE,POINT OF CARE 142 MG/DL (70-110)
[2021-04-19] MEDS: OLANZapine 5 MG TABLET PO SCH (20:41)
[2021-04-20] VITALS (7 sets, daily range): BP systolic 122–139; BP diastolic 68–87
[2021-04-20] MEDS: MetFORMIN HCL 500 MG TABLET PO SCH ×2 (06:40→16:47)
[2021-04-20] MEDS: INSULIN LISPRO 100 UNITS/ML SQ PRN ×2 (06:42→18:01)
[2021-04-20] MEDS: CITALOPRAM HYDROBROMIDE 20 MG TABLET PO SCH (08:51)
[2021-04-20] MEDS: IBUPROFEN 400 MG TABLET PO PRN (09:20)
[2021-04-20] MEDS: MAG HYDROX/AL HYDROX/SIMETH ES 30 ML SUSPENSION UDCUP PO PRN ×2 (10:06→20:10)
[2021-04-20 17:08] LABS: GLUCOMETER DEV NAME(LOC) 3EX.; GLUCOSE,POINT OF CARE 177 MG/DL (70-110)
[2021-04-20] MEDS: ONDANSETRON HCL 4 MG TABLET PO PRN (17:57)
[2021-04-20] MEDS: OLANZapine 5 MG TABLET PO SCH (20:09)
[2021-04-21] MEDS: MetFORMIN HCL 500 MG TABLET PO SCH ×2 (06:35→17:01)
[2021-04-21] MEDS: INSULIN LISPRO 100 UNITS/ML SQ PRN ×2 (06:36→17:02)
[2021-04-21] MEDS: CITALOPRAM HYDROBROMIDE 20 MG TABLET PO SCH (09:18)
[2021-04-21 17:34] LABS: GLUCOMETER DEV NAME(LOC) 3EX.; GLUCOSE,POINT OF CARE 193 MG/DL (70-110)
[2021-04-21 18:21] VITALS: BP 149/87
[2021-04-21] MEDS: OLANZapine 5 MG TABLET PO SCH (20:45)
[2021-04-22 05:35] LABS: GLUCOMETER DEV NAME(LOC) 3EX.; GLUCOSE,POINT OF CARE 153 MG/DL (70-110)
[2021-04-22] MEDS: MetFORMIN HCL 500 MG TABLET PO SCH ×2 (06:55→16:56)
[2021-04-22] MEDS: INSULIN LISPRO 100 UNITS/ML SQ PRN ×2 (06:57→17:55)
[2021-04-22] MEDS: CITALOPRAM HYDROBROMIDE 20 MG TABLET PO SCH (08:56)
[2021-04-22] MEDS: MAG HYDROX/AL HYDROX/SIMETH ES 30 ML SUSPENSION UDCUP PO PRN (08:57)
[2021-04-22 11:26] VITALS: BP 104/85
[2021-04-22] MEDS: LORazepam 2 MG TABLET PO PRN (11:26)
[2021-04-22 16:00] VITALS: BP 132/80
[2021-04-22 17:20] LABS: GLUCOMETER DEV NAME(LOC) 3EX.; GLUCOSE,POINT OF CARE 304 MG/DL (70-110)
[2021-04-22] MEDS: OLANZapine 5 MG TABLET PO SCH (20:47)
[2021-04-23 06:29] LABS: GLUCOMETER DEV NAME(LOC) 3EX.; GLUCOSE,POINT OF CARE 156 MG/DL (70-110)
[2021-04-23] MEDS: MetFORMIN HCL 500 MG TABLET PO SCH ×2 (06:56→17:08)
[2021-04-23] MEDS: INSULIN LISPRO 100 UNITS/ML SQ PRN ×2 (06:58→17:48)
[2021-04-23] MEDS: CITALOPRAM HYDROBROMIDE 20 MG TABLET PO SCH (09:00)
[2021-04-23 09:54] LABS: COVID AG,FIA SOURCE NASOPHARYNGEAL
[2021-04-23] MEDS: MAG HYDROX/AL HYDROX/SIMETH ES 30 ML SUSPENSION UDCUP PO PRN (10:04)
[2021-04-23] MEDS: LORazepam 2 MG TABLET PO PRN (10:04)
[2021-04-23] MEDS: ONDANSETRON HCL 4 MG TABLET PO PRN (10:11)
[2021-04-23 13:13] LABS: ANION GAP 9 mmol/L (8-16); CALCIUM, TOTAL 9.6 mg/dL (8.8-10.5); CARBON DIOXIDE 32 mmol/L (22-29); CHLORIDE 101 mmol/L (98-107); CREATININE 1.05 mg/dL (0.60-1.30); GLOMERULAR FILTR. RATE CALC > 60 mL/min (>60); GLUCOSE,RANDOM 134 mg/dL (70-110); LIPASE 175 U/L (73-393); POTASSIUM 4.6 mmol/L (3.5-5.1); SODIUM SERUM 142 mmol/L (136-145); UREA NITROGEN, BLOOD 29 mg/dL (7-18)
[2021-04-23] MEDS ORDERED: OMEPRAZOLE 20 MG CAPSULE PO SCH (13:15)
[2021-04-23 13:47] LABS: GLUCOMETER DEV NAME(LOC) 3EX.; GLUCOSE,POINT OF CARE 140 MG/DL (70-110)
[2021-04-23 16:00] VITALS: BP 141/79
[2021-04-23] MEDS: OMEPRAZOLE 20 MG CAPSULE PO SCH (17:08)
[2021-04-23 17:09] LABS: GLUCOMETER DEV NAME(LOC) 3EX.; GLUCOSE,POINT OF CARE 142 MG/DL (70-110)
[2021-04-23] MEDS: OLANZapine 5 MG TABLET PO SCH (20:22)
[2021-04-24] MEDS: MetFORMIN HCL 500 MG TABLET PO SCH ×2 (06:33→17:47)
[2021-04-24] MEDS: OMEPRAZOLE 20 MG CAPSULE PO SCH ×2 (08:47→17:47)
[2021-04-24] MEDS: ONDANSETRON HCL 4 MG TABLET PO PRN (08:47)
[2021-04-24] MEDS: LORazepam 2 MG TABLET PO PRN (08:47)
[2021-04-24] MEDS: CITALOPRAM HYDROBROMIDE 20 MG TABLET PO SCH (08:47)
[2021-04-24] MEDS: MAG HYDROX/AL HYDROX/SIMETH ES 30 ML SUSPENSION UDCUP PO PRN (08:47)
[2021-04-24 10:39] VITALS: BP 149/87
[2021-04-24 16:29] VITALS: BP 121/79
[2021-04-24] MEDS: OLANZapine 5 MG TABLET PO SCH (21:47)
[2021-04-25 01:05] VITALS: BP 150/80
[2021-04-25] MEDS: ZOLPIDEM TARTRATE 10 MG TABLET PO PRN (01:45)
[2021-04-25] MEDS: MetFORMIN HCL 500 MG TABLET PO SCH ×2 (06:37→16:10)
[2021-04-25] MEDS: LORazepam 2 MG TABLET PO PRN (08:58)
[2021-04-25] MEDS: MAG HYDROX/AL HYDROX/SIMETH ES 30 ML SUSPENSION UDCUP PO PRN (08:58)
[2021-04-25] MEDS: CITALOPRAM HYDROBROMIDE 20 MG TABLET PO SCH (08:58)
[2021-04-25] MEDS: ONDANSETRON HCL 4 MG TABLET PO PRN (08:58)
[2021-04-25] MEDS: OMEPRAZOLE 20 MG CAPSULE PO SCH ×2 (08:58→16:10)
[2021-04-25 10:31] LABS: GLUCOMETER DEV NAME(LOC) ERT.5; GLUCOSE,POINT OF CARE 170 MG/DL (70-110)
[2021-04-25] MEDS: INSULIN LISPRO 100 UNITS/ML SQ PRN (17:08)
[2021-04-25] MEDS: OLANZapine 5 MG TABLET PO SCH (21:01)
[2021-04-26 06:15] LABS: GLUCOMETER DEV NAME(LOC) 3EX.; GLUCOSE,POINT OF CARE 139 MG/DL (70-110)
[2021-04-26] MEDS: MetFORMIN HCL 500 MG TABLET PO SCH ×2 (07:01→17:31)
[2021-04-26] MEDS: CITALOPRAM HYDROBROMIDE 20 MG TABLET PO SCH (09:41)
[2021-04-26] MEDS: OMEPRAZOLE 20 MG CAPSULE PO SCH ×2 (09:42→17:31)
[2021-04-26 16:05] VITALS: BP 132/75
[2021-04-26 16:48] LABS: GLUCOMETER DEV NAME(LOC) 3EX.; GLUCOSE,POINT OF CARE 154 MG/DL (70-110)
[2021-04-26] MEDS: INSULIN LISPRO 100 UNITS/ML SQ PRN (17:24)
[2021-04-26] MEDS: OLANZapine 5 MG TABLET PO SCH (20:24)
[2021-04-27 05:03] VITALS: BP 138/91
[2021-04-27] MEDS: LORazepam 2 MG TABLET PO PRN (05:03)
[2021-04-27] MEDS: IBUPROFEN 400 MG TABLET PO PRN (05:03)
[2021-04-27 05:46] LABS: GLUCOMETER DEV NAME(LOC) 3EX.; GLUCOSE,POINT OF CARE 146 MG/DL (70-110)
[2021-04-27] MEDS: MetFORMIN HCL 500 MG TABLET PO SCH ×2 (06:30→16:49)
[2021-04-27] MEDS: INSULIN LISPRO 100 UNITS/ML SQ PRN ×2 (06:43→17:17)
[2021-04-27] MEDS: CITALOPRAM HYDROBROMIDE 20 MG TABLET PO SCH (08:32)
[2021-04-27] MEDS: OMEPRAZOLE 20 MG CAPSULE PO SCH ×2 (08:32→16:49)
[2021-04-27 16:24] LABS: GLUCOMETER DEV NAME(LOC) 3EX.; GLUCOSE,POINT OF CARE 159 MG/DL (70-110)
[2021-04-27] MEDS: OLANZapine 5 MG TABLET PO SCH (20:28)
[2021-04-28 03:30] VITALS: BP 148/90
[2021-04-28] MEDS: LORazepam 2 MG TABLET PO PRN ×2 (03:36→13:20)
[2021-04-28 06:45] LABS: GLUCOMETER DEV NAME(LOC) 3EX.; GLUCOSE,POINT OF CARE 202 MG/DL (70-110)
[2021-04-28] MEDS: INSULIN LISPRO 100 UNITS/ML SQ PRN ×2 (06:47→17:49)
[2021-04-28] MEDS: MetFORMIN HCL 500 MG TABLET PO SCH ×2 (06:47→17:07)
[2021-04-28] MEDS: OMEPRAZOLE 20 MG CAPSULE PO SCH ×2 (07:58→17:07)
[2021-04-28] MEDS: CITALOPRAM HYDROBROMIDE 20 MG TABLET PO SCH (07:58)
[2021-04-28 13:00] VITALS: BP 138/83
[2021-04-28 13:20] VITALS: BP 138/83
[2021-04-28] MEDS: IBUPROFEN 400 MG TABLET PO PRN (13:20)
[2021-04-28 16:00] VITALS: BP 129/96
[2021-04-28 17:44] LABS: GLUCOMETER DEV NAME(LOC) 3EX.; GLUCOSE,POINT OF CARE 162 MG/DL (70-110)
[2021-04-28] MEDS: OLANZapine 5 MG TABLET PO SCH (21:00)
[2021-04-29 01:15] VITALS: BP 128/87
[2021-04-29] MEDS: ZOLPIDEM TARTRATE 10 MG TABLET PO PRN (01:21)
[2021-04-29] MEDS: MetFORMIN HCL 500 MG TABLET PO SCH ×2 (06:45→16:58)
[2021-04-29] MEDS: CITALOPRAM HYDROBROMIDE 20 MG TABLET PO SCH (09:00)
[2021-04-29] MEDS: OMEPRAZOLE 20 MG CAPSULE PO SCH ×2 (09:00→16:57)
[2021-04-29 16:23] VITALS: BP 163/96
[2021-04-29 17:06] LABS: GLUCOMETER DEV NAME(LOC) 3EX.; GLUCOSE,POINT OF CARE 247 MG/DL (70-110)
[2021-04-29] MEDS: INSULIN LISPRO 100 UNITS/ML SQ PRN (17:32)
[2021-04-29] MEDS: OLANZapine 5 MG TABLET PO SCH (21:09)
[2021-04-30] MEDS: MetFORMIN HCL 500 MG TABLET PO SCH ×2 (07:02→16:07)
[2021-04-30] MEDS: OMEPRAZOLE 20 MG CAPSULE PO SCH ×2 (08:37→16:07)
[2021-04-30] MEDS: CITALOPRAM HYDROBROMIDE 20 MG TABLET PO SCH (08:37)
[2021-04-30 16:00] VITALS: BP 140/90
[2021-04-30] MEDS: INSULIN LISPRO 100 UNITS/ML SQ PRN (16:50)
[2021-04-30 17:10] LABS: GLUCOMETER DEV NAME(LOC) 3EX.; GLUCOSE,POINT OF CARE 223 MG/DL (70-110)
[2021-04-30] MEDS: OLANZapine 5 MG TABLET PO SCH (20:13)
[2021-05-01 05:45] LABS: GLUCOMETER DEV NAME(LOC) 3EX.; GLUCOSE,POINT OF CARE 146 MG/DL (70-110)
[2021-05-01] MEDS: MetFORMIN HCL 500 MG TABLET PO SCH (06:47)
[2021-05-01] MEDS: INSULIN LISPRO 100 UNITS/ML SQ PRN (06:58)
[2021-05-01] MEDS: OMEPRAZOLE 20 MG CAPSULE PO SCH (08:57)
[2021-05-01] MEDS: CITALOPRAM HYDROBROMIDE 20 MG TABLET PO SCH (08:57)
[2021-05-01 09:21] VITALS: BP 154/94
[2021-05-01] MEDS ORDERED: OMEP20 PO (13:19)
== END 2021-05-01 16:30 | disposition home or self-care (01) | DRG 750 ==
LOC: EMS 23:32 → 3EI 04-16 11:17
PROVIDERS: ADMIT Psychiatry & Neurology Child & Adolescent Psychiatry; ATTEND Psychiatry & Neurology Child & Adolescent Psychiatry
DX: F25.1 Schizoaffective disorder, depressive type (principal); R45.851 Suicidal ideations; E11.9 Type 2 diabetes mellitus without complications; D64.9 Anemia, unspecified; F10.10 Alcohol abuse, uncomplicated; F09 Unspecified mental disorder due to known physiological condition; F12.90 Cannabis use, unspecified, uncomplicated; F32.9 Major depressive disorder, single episode, unspecified; F15.90 Other stimulant use, unspecified, uncomplicated; Z20.822 Contact with and (suspected) exposure to COVID-19; J44.9 Chronic obstructive pulmonary disease, unspecified; K21.9 Gastro-esophageal reflux disease without esophagitis; Z59.00 Homelessness unspecified; Z87.891 Personal history of nicotine dependence; Z88.0 Allergy status to penicillin; Z88.8 Allergy status to other drugs, medicaments and biological substances
CPT/HCPCS: 70450; 80048; 80053; 80061; 81001; 81002; 82962; 83036; 83690; 85025; 99285; G0480; Q0162

== ENCOUNTER 2021-05-03 13:55 | Inpatient (IN) | payer MEDICARE, MEDICAID ==
[~2021-05-03] VITALS: Ht 182.9 cm; Wt 65.3 kg
[~2021-05-03 13:55] MED LIST changes: +METF-1211 PO; -METF-960 PO; +OMEP20 PO
[2021-05-03 14:47] LABS: BASOPHILS % (AUTO) 0.6 % (0.0-2.0); EOSINOPHILS % (AUTO) 2.9 % (1.0-6.0); HEMATOCRIT 34.6 % (41-53); HEMOGLOBIN 11.4 g/dL (13.5-17.5); LYMPHOCYTES # (AUTO) 1.1 K/uL (1.0-4.8); LYMPHOCYTES % (AUTO) 15.1 % (22.0-44.0); MEAN CORPUSCULAR HEMOGLOBIN 29.7 pg (26.0-34.0); MEAN CORPUSCULAR HGB CONC 33.1 G/dL (31.0-37.0); MEAN CORPUSCULAR VOLUME 90 fL (80-100); MONOCYTES # (AUTO) 0.6 K/uL (0.1-1.0); MONOCYTES % (AUTO) 8.2 % (2.0-9.0); NEUTROPHILS # (AUTO) 5.1 K/uL (1.8-7.7); NEUTROPHILS % (AUTO) 73.2 % (40.0-70.0); PLATELET COUNT (AUTO) 230 K/uL (150-450); RED BLOOD CELL COUNT(AUTO) 3.86 MIL/uL (4.50-5.90); RED CELL DISTRIBUTION WIDTH 16.2 % (11.5-14.5)
[2021-05-03 15:00] LABS: ANION GAP 3 mmol/L (8-16); CALCIUM, TOTAL 9.1 mg/dL (8.8-10.5); CARBON DIOXIDE 31 mmol/L (22-29); CHLORIDE 101 mmol/L (98-107); GLOMERULAR FILTR. RATE CALC > 60 mL/min (>60); GLUCOSE,RANDOM 235 mg/dL (70-110); POTASSIUM 4.7 mmol/L (3.5-5.1); SODIUM SERUM 135 mmol/L (136-145); UREA NITROGEN, BLOOD 26 mg/dL (7-18)
[2021-05-03 15:05] LABS: ALANINE AMINOTRANSFERASE 72 U/L (12-78); ALBUMIN 3.1 g/dL (3.4-5.0); ALKALINE PHOSPHATASE 201 U/L (46-116); ASPARTATE AMINOTRANSFERASE 49 U/L (15-37); BILIRUBIN,TOTAL 0.5 mg/dL (0.1-1.0); TOTAL PROTEIN, SERUM 8.1 g/dL (6.4-8.2)
[2021-05-03] MEDS ORDERED: HALOPERIDOL 5 MG TABLET PO PRN (17:00)
[2021-05-03 19:31] LABS: COVID AG,FIA SOURCE NASAL SWAB
[2021-05-03] MEDS ORDERED: OLANZapine 5 MG TABLET PO SCH (21:00)
[2021-05-03] MEDS: OLANZapine 5 MG TABLET PO SCH (22:12)
[2021-05-04] MEDS: CITALOPRAM HYDROBROMIDE 20 MG TABLET PO SCH (09:00)
[2021-05-04] MEDS: OLANZapine 5 MG TABLET PO SCH ×3 (09:00→20:06)
[2021-05-04 11:27] LABS: GLUCOMETER DEV NAME(LOC) ERT.5; GLUCOSE,POINT OF CARE 264 MG/DL (70-110)
[2021-05-04 16:13] VITALS: BP 146/98
[2021-05-04] MEDS ORDERED: GLUCAGON,HUMAN RECOMBINANT 1 MG VIAL IM PRN (16:30)
[2021-05-04 16:37] LABS: GLUCOMETER DEV NAME(LOC) BV2S.; GLUCOSE,POINT OF CARE 267 MG/DL (70-110)
[2021-05-04] MEDS ORDERED: INFLUENZA VIRUS VACCINE QVS 2021-22 (6MO+)/PF 60 MCG/0.5 ML SYRINGE IM. ONE (16:45)
[2021-05-04] MEDS ORDERED: PNEUMOCOCCAL VACCINE POLYVALENT 0.5 ML VIAL [PPSV23] IM. ONE (16:45)
[2021-05-04] MEDS: INSULIN LISPRO 100 UNITS/ML SQ PRN (16:54)
[2021-05-04] MEDS: MetFORMIN HCL 500 MG TABLET PO SCH (17:00)
[2021-05-04] MEDS: MAG HYDROX/AL HYDROX/SIMETH 30 ML SUSP UDCUP PO PRN (19:56)
[2021-05-04] MEDS: LORazepam 2 MG TABLET PO PRN (20:06)
[2021-05-05] MEDS: MetFORMIN HCL 500 MG TABLET PO SCH ×2 (06:47→16:45)
[2021-05-05] MEDS: OLANZapine 5 MG TABLET PO SCH ×3 (09:04→21:00)
[2021-05-05] MEDS: CITALOPRAM HYDROBROMIDE 20 MG TABLET PO SCH (09:04)
[2021-05-05] MEDS: MAG HYDROX/AL HYDROX/SIMETH 30 ML SUSP UDCUP PO PRN (09:04)
[2021-05-05] MEDS: LORazepam 2 MG TABLET PO PRN (09:25)
[2021-05-05] MEDS ORDERED: ACETAMINOPHEN 325 MG TABLET PO PRN ×2 (10:15→14:00)
[2021-05-05] MEDS: INSULIN LISPRO 100 UNITS/ML SQ PRN (11:28)
[2021-05-05 11:34] LABS: GLUCOMETER DEV NAME(LOC) BV2S.; GLUCOSE,POINT OF CARE 251 MG/DL (70-110)
[2021-05-05] MEDS ORDERED: MAGNESIUM HYDROXIDE SUSPENSION 30 ML UDCUP PO PRN (14:00)
[2021-05-05] MEDS ORDERED: ALBUTEROL SULFATE HFA 90 MCG/PUFF 8 GM INHALER IH PRN (14:00)
[2021-05-05] MEDS ORDERED: GuaiFENesin/D-METHORPHAN [SUGAR-FREE] 200-20MG/10 ML SYRUP UDCUP PO PRN (14:00)
[2021-05-05] MEDS ORDERED: IBUPROFEN 400 MG TABLET PO PRN (14:00)
[2021-05-05] MEDS ORDERED: MAG HYDROX/AL HYDROX/SIMETH ES 30 ML SUSPENSION UDCUP PO PRN (14:00)
[2021-05-05] MEDS ORDERED: NICOTINE 14 MG/24 HOUR PATCH TD PRN (14:00)
[2021-05-05] MEDS ORDERED: CloNIDine HCL 0.1 MG TABLET PO PRN (14:00)
[2021-05-05] MEDS ORDERED: ONDANSETRON HCL 4 MG TABLET PO PRN (14:00)
[2021-05-05] MEDS ORDERED: DOCUSATE SODIUM 100 MG CAPSULE PO PRN (14:00)
[2021-05-05] MEDS ORDERED: PETROLATUM,WHITE 28 GM JELLY TP PRN (14:00)
[2021-05-05] MEDS: OMEPRAZOLE 20 MG CAPSULE PO SCH (16:45)
[2021-05-05 17:07] LABS: GLUCOMETER DEV NAME(LOC) BV2S.; GLUCOSE,POINT OF CARE 126 MG/DL (70-110)
[2021-05-06 06:10] LABS: GLUCOMETER DEV NAME(LOC) BV2S.; GLUCOSE,POINT OF CARE 177 MG/DL (70-110)
[2021-05-06] MEDS: MetFORMIN HCL 500 MG TABLET PO SCH ×2 (06:45→16:08)
[2021-05-06] MEDS: INSULIN LISPRO 100 UNITS/ML SQ PRN ×2 (06:45→16:32)
[2021-05-06] MEDS: OMEPRAZOLE 20 MG CAPSULE PO SCH ×2 (08:31→16:08)
[2021-05-06] MEDS: CITALOPRAM HYDROBROMIDE 20 MG TABLET PO SCH (08:31)
[2021-05-06] MEDS: OLANZapine 5 MG TABLET PO SCH ×3 (08:31→20:29)
[2021-05-06 17:00] LABS: GLUCOMETER DEV NAME(LOC) BV2S.; GLUCOSE,POINT OF CARE 267 MG/DL (70-110)
[2021-05-07 00:44] VITALS: BP 136/79
[2021-05-07] MEDS: ZOLPIDEM TARTRATE 10 MG TABLET PO PRN (00:48)
[2021-05-07] MEDS: MetFORMIN HCL 500 MG TABLET PO SCH ×2 (06:44→15:57)
[2021-05-07 07:01] LABS: GLUCOMETER DEV NAME(LOC) BV2S.; GLUCOSE,POINT OF CARE 180 MG/DL (70-110)
[2021-05-07] MEDS: INSULIN LISPRO 100 UNITS/ML SQ PRN ×3 (07:03→21:45)
[2021-05-07] MEDS: CITALOPRAM HYDROBROMIDE 20 MG TABLET PO SCH (08:23)
[2021-05-07] MEDS: OLANZapine 5 MG TABLET PO SCH ×3 (08:24→21:33)
[2021-05-07] MEDS: OMEPRAZOLE 20 MG CAPSULE PO SCH ×2 (08:24→15:57)
[2021-05-07 16:17] VITALS: BP 138/88
[2021-05-07 17:01] LABS: GLUCOMETER DEV NAME(LOC) BV2S.; GLUCOSE,POINT OF CARE 260 MG/DL (70-110)
[2021-05-07] MEDS: LOPERAMIDE HCL 2 MG CAPSULE PO PRN ×2 (17:17→22:13)
[2021-05-07] MEDS: MetroNIDAZOLE 500 MG TABLET PO SCH (21:33)
[2021-05-07] MEDS: LACTOBACILLUS ACIDOPHILUS/BULGARICUS GRANULES PACKET PO SCH (21:33)
[2021-05-07 21:56] LABS: GLUCOMETER DEV NAME(LOC) BV2S.; GLUCOSE,POINT OF CARE 180 MG/DL (70-110)
[2021-05-08 00:09] VITALS: BP 137/84
[2021-05-08] MEDS: MetFORMIN HCL 500 MG TABLET PO SCH ×2 (06:46→16:00)
[2021-05-08 06:51] LABS: GLUCOMETER DEV NAME(LOC) BV2S.; GLUCOSE,POINT OF CARE 204 MG/DL (70-110)
[2021-05-08] MEDS: INSULIN LISPRO 100 UNITS/ML SQ PRN ×2 (06:51→17:09)
[2021-05-08 08:20] VITALS: BP 150/89
[2021-05-08] MEDS: OLANZapine 5 MG TABLET PO SCH ×3 (10:30→20:20)
[2021-05-08] MEDS: OMEPRAZOLE 20 MG CAPSULE PO SCH ×2 (10:30→16:00)
[2021-05-08] MEDS: LACTOBACILLUS ACIDOPHILUS/BULGARICUS GRANULES PACKET PO SCH ×3 (10:30→16:00)
[2021-05-08] MEDS: MetroNIDAZOLE 500 MG TABLET PO SCH ×3 (10:30→16:00)
[2021-05-08] MEDS: CITALOPRAM HYDROBROMIDE 20 MG TABLET PO SCH (10:30)
[2021-05-08 11:53] LABS: GLUCOMETER DEV NAME(LOC) BV2S.; GLUCOSE,POINT OF CARE 283 MG/DL (70-110)
[2021-05-08 16:05] VITALS: BP 137/87
[2021-05-08 21:20] LABS: GLUCOMETER DEV NAME(LOC) BV2S.; GLUCOSE,POINT OF CARE 190 MG/DL (70-110)
[2021-05-08] MEDS: ZOLPIDEM TARTRATE 10 MG TABLET PO PRN (21:25)
[2021-05-09 00:29] VITALS: BP 139/83
[2021-05-09 06:16] LABS: GLUCOMETER DEV NAME(LOC) BV2S.; GLUCOSE,POINT OF CARE 199 MG/DL (70-110)
[2021-05-09] MEDS: MetFORMIN HCL 500 MG TABLET PO SCH ×2 (06:46→16:24)
[2021-05-09] MEDS: INSULIN LISPRO 100 UNITS/ML SQ PRN ×2 (06:50→16:59)
[2021-05-09 08:09] LABS: COVID AG,FIA SOURCE NASOPHARYNGEAL
[2021-05-09 08:15] VITALS: BP 139/87
[2021-05-09] MEDS: OLANZapine 5 MG TABLET PO SCH ×3 (09:00→20:42)
[2021-05-09] MEDS: OMEPRAZOLE 20 MG CAPSULE PO SCH ×2 (09:00→16:24)
[2021-05-09] MEDS: MetroNIDAZOLE 500 MG TABLET PO SCH ×3 (09:00→16:24)
[2021-05-09] MEDS: LACTOBACILLUS ACIDOPHILUS/BULGARICUS GRANULES PACKET PO SCH ×3 (09:00→16:28)
[2021-05-09] MEDS: CITALOPRAM HYDROBROMIDE 20 MG TABLET PO SCH (13:20)
[2021-05-09 16:12] VITALS: BP 131/89
[2021-05-09] MEDS: LORazepam 2 MG TABLET PO PRN (17:56)
[2021-05-10 00:01] VITALS: BP 140/81
[2021-05-10] MEDS: MetFORMIN HCL 500 MG TABLET PO SCH ×2 (06:26→16:51)
[2021-05-10 08:03] VITALS: BP 129/83
[2021-05-10] MEDS: OLANZapine 5 MG TABLET PO SCH ×3 (08:28→20:16)
[2021-05-10] MEDS: MetroNIDAZOLE 500 MG TABLET PO SCH ×3 (08:28→16:51)
[2021-05-10] MEDS: CITALOPRAM HYDROBROMIDE 20 MG TABLET PO SCH (08:28)
[2021-05-10] MEDS: OMEPRAZOLE 20 MG CAPSULE PO SCH ×2 (08:28→16:51)
[2021-05-10] MEDS: LACTOBACILLUS ACIDOPHILUS/BULGARICUS GRANULES PACKET PO SCH ×3 (08:36→17:00)
[2021-05-10 16:09] VITALS: BP 136/73
[2021-05-10] MEDS: INSULIN LISPRO 100 UNITS/ML SQ PRN (16:57)
[2021-05-10 17:29] LABS: GLUCOMETER DEV NAME(LOC) BV2S.; GLUCOSE,POINT OF CARE 206 MG/DL (70-110)
[2021-05-11 00:04] VITALS: BP 137/71
[2021-05-11] MEDS: MetFORMIN HCL 500 MG TABLET PO SCH ×2 (07:08→16:55)
[2021-05-11 07:38] LABS: AMPHET/METH SCREEN,URINE NEGATIVE (NEGATIVE); BARBITURATE SCREEN, URINE NEGATIVE (NEGATIVE); BENZODIAZEPINES SCREEN,URINE NEGATIVE (NEGATIVE); CANNABINOID SCREEN,URINE NEGATIVE (NEGATIVE); COCAINE SCREEN,URINE NEGATIVE (NEGATIVE); METHADONE SCREEN, URINE NEGATIVE (NEGATIVE); OPIATE SCREEN,URINE NEGATIVE (NEGATIVE)
[2021-05-11 07:45] LABS: PHENCYCLIDINE SCREEN,URINE NEGATIVE (NEGATIVE)
[2021-05-11 08:09] VITALS: BP 161/98
[2021-05-11] MEDS: LACTOBACILLUS ACIDOPHILUS/BULGARICUS GRANULES PACKET PO SCH ×4 (09:00→16:59)
[2021-05-11] MEDS: CITALOPRAM HYDROBROMIDE 20 MG TABLET PO SCH ×2 (09:00→09:22)
[2021-05-11] MEDS: OMEPRAZOLE 20 MG CAPSULE PO SCH ×3 (09:00→16:55)
[2021-05-11] MEDS: MetroNIDAZOLE 500 MG TABLET PO SCH ×4 (09:00→16:54)
[2021-05-11] MEDS: OLANZapine 5 MG TABLET PO SCH ×5 (09:00→21:00)
[2021-05-11] MEDS: INSULIN LISPRO 100 UNITS/ML SQ PRN (17:01)
[2021-05-11 17:11] LABS: GLUCOMETER DEV NAME(LOC) BV2S.; GLUCOSE,POINT OF CARE 278 MG/DL (70-110)
[2021-05-12 00:41] VITALS: BP 138/81
[2021-05-12] MEDS: MetFORMIN HCL 500 MG TABLET PO SCH (06:33)
[2021-05-12 08:56] LABS: GLUCOMETER DEV NAME(LOC) BV2S.; GLUCOSE,POINT OF CARE 217 MG/DL (70-110)
[2021-05-12] MEDS: MetroNIDAZOLE 500 MG TABLET PO SCH (08:57)
[2021-05-12] MEDS: CITALOPRAM HYDROBROMIDE 20 MG TABLET PO SCH (08:57)
[2021-05-12] MEDS: OMEPRAZOLE 20 MG CAPSULE PO SCH (08:57)
[2021-05-12] MEDS: OLANZapine 5 MG TABLET PO SCH (09:00)
[2021-05-12] MEDS: LACTOBACILLUS ACIDOPHILUS/BULGARICUS GRANULES PACKET PO SCH (09:04)
[2021-05-12] MEDS ORDERED: OLAN5TAB52 PO (10:50)
[2021-05-12] MEDS ORDERED: METR500 PO ×2 (10:51→10:52)
== END 2021-05-12 12:45 | disposition home or self-care (01) | DRG 750 ==
LOC: EMS 13:55 → B2S 05-04 14:29
PROVIDERS: ATTEND Psychiatry & Neurology Child & Adolescent Psychiatry
DX: F25.1 Schizoaffective disorder, depressive type (principal); R45.851 Suicidal ideations; Z59.00 Homelessness unspecified; E11.65 Type 2 diabetes mellitus with hyperglycemia; Z20.822 Contact with and (suspected) exposure to COVID-19; F10.10 Alcohol abuse, uncomplicated; J44.9 Chronic obstructive pulmonary disease, unspecified; F17.210 Nicotine dependence, cigarettes, uncomplicated; Z91.14 Patient's other noncompliance with medication regimen; Z88.0 Allergy status to penicillin; Z88.8 Allergy status to other drugs, medicaments and biological substances; Z91.018 Allergy to other foods; Z71.41 Alcohol abuse counseling and surveillance of alcoholic
CPT/HCPCS: 80053; 82962; 85025; 87045; 87081; 99285; G0480

== ENCOUNTER 2021-08-15 23:22 | Emergency (ER) | payer MEDICARE, OTHER ==
[~2021-08-15] VITALS: Ht 182.9 cm; Wt 80.0 kg
[~2021-08-15 23:22] MED LIST changes: +METR500 PO
[2021-08-16 00:37] LABS: BASOPHILS % (AUTO) 0.5 % (0.0-2.0); HEMATOCRIT 29.5 % (41-53); HEMOGLOBIN 9.7 g/dL (13.5-17.5); LYMPHOCYTES # (AUTO) 1.3 K/uL (1.0-4.8); LYMPHOCYTES % (AUTO) 16.4 % (22.0-44.0); MEAN CORPUSCULAR HEMOGLOBIN 28.6 pg (26.0-34.0); MEAN CORPUSCULAR VOLUME 87 fL (80-100); MONOCYTES # (AUTO) 0.6 K/uL (0.1-1.0); MONOCYTES % (AUTO) 7.2 % (2.0-9.0); NEUTROPHILS # (AUTO) 5.8 K/uL (1.8-7.7); NEUTROPHILS % (AUTO) 72.9 % (40.0-70.0); PLATELET COUNT (AUTO) 248 K/uL (150-450); RED BLOOD CELL COUNT(AUTO) 3.41 MIL/uL (4.50-5.90); RED CELL DISTRIBUTION WIDTH 14.9 % (11.5-14.5)
[2021-08-16 00:45] LABS: ANION GAP 4 mmol/L (8-16); CALCIUM, TOTAL 8.8 mg/dL (8.8-10.5); CARBON DIOXIDE 28 mmol/L (22-29); CHLORIDE 100 mmol/L (98-107); CREATININE 1.23 mg/dL (0.60-1.30); GLOMERULAR FILTR. RATE CALC > 60 mL/min (>60); GLUCOSE,RANDOM 241 mg/dL (70-110); POTASSIUM 3.9 mmol/L (3.5-5.1); SODIUM SERUM 132 mmol/L (136-145); UREA NITROGEN, BLOOD 18 mg/dL (7-18)
[2021-08-16 00:50] LABS: ALANINE AMINOTRANSFERASE 20 U/L (12-78); ALBUMIN 3.1 g/dL (3.4-5.0); ALKALINE PHOSPHATASE 133 U/L (46-116); ASPARTATE AMINOTRANSFERASE 21 U/L (15-37); BILIRUBIN,TOTAL 0.4 mg/dL (0.1-1.0); LIPASE 124 U/L (73-393); TOTAL PROTEIN, SERUM 8.3 g/dL (6.4-8.2)
[2021-08-16 01:53] VITALS: BP 142/78
== END 2021-08-16 02:08 | disposition home or self-care (01) ==
LOC: EMS 23:22
DX: F10.20 Alcohol dependence, uncomplicated (principal); E11.65 Type 2 diabetes mellitus with hyperglycemia; J44.9 Chronic obstructive pulmonary disease, unspecified; F20.9 Schizophrenia, unspecified; F12.90 Cannabis use, unspecified, uncomplicated; F15.90 Other stimulant use, unspecified, uncomplicated; F17.210 Nicotine dependence, cigarettes, uncomplicated; Z59.00 Homelessness unspecified; Y90.0 Blood alcohol level of less than 20 mg/100 ml; Z79.899 Other long term (current) drug therapy; Z79.84 Long term (current) use of oral hypoglycemic drugs; Z88.0 Allergy status to penicillin; Z88.1 Allergy status to other antibiotic agents
CPT/HCPCS: 36415; 80053; 83690; 84484; 85025; 99284; G0480

== ENCOUNTER 2021-08-31 14:53 | Emergency (ER) | payer MEDICARE, OTHER ==
[~2021-08-31] VITALS: Ht 185.4 cm; Wt 63.6 kg
[2021-08-31 16:34] LABS: BASOPHILS % (AUTO) 0.7 % (0.0-2.0); EOSINOPHILS % (AUTO) 5.6 % (1.0-6.0); HEMATOCRIT 28.7 % (41-53); HEMOGLOBIN 9.5 g/dL (13.5-17.5); LYMPHOCYTES # (AUTO) 1.1 K/uL (1.0-4.8); LYMPHOCYTES % (AUTO) 18.2 % (22.0-44.0); MEAN CORPUSCULAR HEMOGLOBIN 28.3 pg (26.0-34.0); MEAN CORPUSCULAR VOLUME 86 fL (80-100); MONOCYTES # (AUTO) 0.5 K/uL (0.1-1.0); MONOCYTES % (AUTO) 8.1 % (2.0-9.0); NEUTROPHILS # (AUTO) 4.1 K/uL (1.8-7.7); NEUTROPHILS % (AUTO) 67.4 % (40.0-70.0); PLATELET COUNT (AUTO) 267 K/uL (150-450); RED BLOOD CELL COUNT(AUTO) 3.34 MIL/uL (4.50-5.90)
[2021-08-31 16:49] LABS: ANION GAP 3 mmol/L (8-16); CALCIUM, TOTAL 8.5 mg/dL (8.8-10.5); CARBON DIOXIDE 30 mmol/L (22-29); CHLORIDE 99 mmol/L (98-107); CREATININE 1.18 mg/dL (0.60-1.30); GLOMERULAR FILTR. RATE CALC > 60 mL/min (>60); GLUCOSE,RANDOM 378 mg/dL (70-110); POTASSIUM 3.6 mmol/L (3.5-5.1); SODIUM SERUM 132 mmol/L (136-145); UREA NITROGEN, BLOOD 10 mg/dL (7-18)
[2021-08-31 16:53] LABS: ALANINE AMINOTRANSFERASE 15 U/L (12-78); ALBUMIN 2.6 g/dL (3.4-5.0); ALKALINE PHOSPHATASE 118 U/L (46-116); ASPARTATE AMINOTRANSFERASE 19 U/L (15-37); BILIRUBIN,TOTAL 0.5 mg/dL (0.1-1.0); TOTAL PROTEIN, SERUM 7.4 g/dL (6.4-8.2)
[2021-08-31] MEDS ORDERED: ONDANSETRON HCL 4 MG TABLET PO ONE (20:45)
[2021-08-31] MEDS ORDERED: FAMOTIDINE 20 MG TABLET PO ONE (20:45)
[2021-08-31] MEDS ORDERED: FAMOTIDINE 10 MG/ML 2 ML VIAL IVP ONE (21:15)
[2021-08-31] MEDS ORDERED: ONDANSETRON HCL 4 MG/2 ML VIAL IVP ONE (21:15)
[2021-08-31 21:36] LABS: B-TYPE NATRIURETIC PEPTIDE 270 pg/mL (0-100)
[2021-08-31] MEDS ORDERED: SODIUM CHLORIDE 0.9% 100 ML ONE (21:38)
[2021-08-31] MEDS ORDERED: IOHEXOL 350 MG/ML 100 ML VIAL ONE (21:38)
[2021-08-31 22:07] LABS: LIPASE 92 U/L (73-393)
[2021-08-31 22:14] LABS: AMMONIA 13 umol/L (11-32)
[2021-08-31] MEDS ORDERED: VANCOMYCIN HCL 1 GM/D5% WATER 200 ML IV ONE (22:45)
[2021-08-31] MEDS ORDERED: VANCOMYCIN HCL 1 GM in DEXTROSE 5%-WATER 250 ML IV ONE (23:00)
[2021-09-01 00:25] VITALS: BP 167/93
[2021-09-01 02:04] LABS: COVID AG,FIA SOURCE NASAL SWAB
== END 2021-09-01 03:33 | disposition short-term general hospital (02) ==
LOC: EMS 14:56
DX: L02.31 Cutaneous abscess of buttock (principal); E11.65 Type 2 diabetes mellitus with hyperglycemia; F25.9 Schizoaffective disorder, unspecified; F32.9 Major depressive disorder, single episode, unspecified; I10 Essential (primary) hypertension; Z20.822 Contact with and (suspected) exposure to COVID-19; Z88.0 Allergy status to penicillin; Z91.018 Allergy to other foods; Z79.84 Long term (current) use of oral hypoglycemic drugs
CPT/HCPCS: 36415; 70450; 71045; 74177; 80053; 82140; 83690; 83880; 84484; 85025; 87426; 93005; 96365; 96366; 96375; 99285; G0480; J2405; J3370 ×2; J3490; J7050; J7060; Q0162; Q9967

== ENCOUNTER 2021-09-20 18:53 | Emergency (ER) | payer MEDICARE, OTHER ==
[~2021-09-20] VITALS: Ht 182.9 cm; Wt 65.9 kg
[2021-09-20 20:13] VITALS: BP 143/80
== END 2021-09-20 20:49 | disposition home or self-care (01) ==
LOC: EMS 18:55
DX: R53.1 Weakness (principal); F25.9 Schizoaffective disorder, unspecified; E11.9 Type 2 diabetes mellitus without complications; I10 Essential (primary) hypertension; Z59.00 Homelessness unspecified; Z88.0 Allergy status to penicillin; Z88.1 Allergy status to other antibiotic agents; Z91.018 Allergy to other foods; Z79.84 Long term (current) use of oral hypoglycemic drugs
CPT/HCPCS: 82962; 99283